=== PATIENT | female | born 1970 | race Caucasian/White ===

== ENCOUNTER 2017-05-07 18:51 | Emergency (ER) | payer BC ==
[~2017-05-07] VITALS: Ht 167.6 cm; Wt 68.0 kg
[~2017-05-07 18:51] MED LIST: ACCUPRIL; ACETAMINOPHEN325 M1; ACETAMINOPHEN325 M1 PO; ALPRAZOLAM ER1 MG PO; ALPRAZOLAM PO; ALPRAZOLAM1 M1; ALPRAZOLAM1 M1 PO; ASPIRIN EC81 M1; BACTRIM; BACTRIM DS TAB1 EACH PO; BACTROBAN NASAL1 GM NS; BENADRYL25 MG PO; CARVEDILOL6.25 MG; CLONAZEPAM 1 MG1 M1 PO; CLONAZEPAM PO; COLACE100 MG; DOXYCYCLINE; DOXYCYCLINE 10100 MG PO; IBUPROFEN 600600 M1; NITROGLYCERIN0.4 MG SL; PANTOPRAZOLE SO40 M1; PEPCID AC20 M1 PO; PERCOCET 5-3251 EACH; PREDNISONE 20 M20 M1 PO; PRILOSEC 20 MG20 MG PO; PRINIVIL20 MG PO; QUINU10 PD PO; QUINU5 PD PO; TESSALON200 MG PO; TRAMADOL 50 MG50 MG PO; VENTOLIN HFA INH8 GM IH
[2017-05-07 20:40] VITALS: BP 129/72
== END 2017-05-07 20:40 | disposition home or self-care (01) ==
LOC: M.ERS 18:51
DX: S93.491A Sprain of other ligament of right ankle, initial encounter (principal); S46.911A Strain of unspecified muscle, fascia and tendon at shoulder and upper arm level, right arm, initial encounter; I10 Essential (primary) hypertension; Z88.5 Allergy status to narcotic agent; X50.1XXA Overexertion from prolonged static or awkward postures, initial encounter; Y93.89 Activity, other specified; Y92.89 Other specified places as the place of occurrence of the external cause; Y99.8 Other external cause status

== ENCOUNTER 2019-05-19 03:03 | Inpatient (IN) | payer BC ==
[2019-05-19] VITALS (7 sets, daily range): BP systolic 95–113; BP diastolic 55–72
[~2019-05-19] VITALS: Ht 167.6 cm; Wt 75.2 kg
--- NOTE | ~2019-05-19 | OP ---
[facility] [address] [place] [address] OPERATIVE REPORT Name: HEATH BURGER Room: [address] IN M.R.#: [id number] Admission: 05/19/19 Attend Phys: Keisha Bermeo Discharge: Date of : 68 Report #: [id number] THIS REPORT FOR: //name// cc: Vinay Bella Russell J. DO ~ THIS REPORT FOR: //name// CC: Vinay Zarate DICTATED BY: August York DO DATE OF SERVICE: 05/19/2019 PREOPERATIVE DIAGNOSIS: Right acute closed trimalleolar ankle fracture. POSTOPERATIVE DIAGNOSIS: Right acute closed trimalleolar ankle fracture. PROCEDURES: 1. Open reduction and internal fixation right ankle with distal fibular plate and 2 partially-threaded cannulated medial malleolar screws. 2. Physician-directed fluoroscopy less than 1 hour. IMPLANTS: [employer] ankle solutions implants. SURGEON: Javed Beasley DO ASSISTANTS: August York DO; Alejandro Luo DO; Nathan Cox DO ANESTHESIA: General and regional block. ESTIMATED BLOOD LOSS: 25 mL. DRAINS: None. SPECIMENS: None. COMPLICATIONS: None. CONDITION: Stable to PACU. DISPOSITION: PACU to Med/Surg. ANTIBIOTICS: 2 g Ancef IV preop. TOURNIQUET: Approximately 50 minutes at 250 mmHg. [place] [address] [place] [address] OPERATIVE REPORT Name: HEATH BURGER Room: [place] [address] ADM IN M.R.#: [id number] Admission: 05/19/19 Attend Phys: Keisha Bermeo Discharge: Date of : 68 Report #: [id number] INDICATIONS FOR PROCEDURE: The patient is a very pleasant 49-year-old female who sustained a ground-level fall late last night. She had immediate right ankle pain and was brought to [facility] ED. X-rays identified a displaced trimalleolar ankle fracture dislocation. We recommended closed reduction versus open reduction and internal fixation in the operating room depending on the status of her soft tissue swelling. The risks, benefits, alternatives, and possible complications were discussed at length and she was agreeable to proceed. We also did discuss smoking and associated complications with that and recommended cessation. FINDINGS: Upon evaluation in the operating room after the splint was taken down, she had mild swelling, but the skin was able to tent. The decision was made to proceed with open reduction and internal fixation. DESCRIPTION OF PROCEDURE: The patient was met in the preoperative area. Consent was obtained. The correct site was marked. She was transferred to the operative suite and placed supine on the operative table. All bony prominences were well padded. She was secured to the table. She was given the benefit of general anesthesia. She was also given a regional block by Anesthesia in the preoperative area. A well-padded nonsterile tourniquet was applied to the right upper extremity. The right lower extremity was then prepped and draped in the normal sterile fashion. A timeout was performed to identify the correct patient, procedure, operative site, and administration of antibiotics. All in the room were in agreement. The procedure started with attention directed towards the lateral malleolus. A longitudinal incision was made laterally and carried down to the level of bone using both sharp and blunt dissection, taking care to avoid any neurovascular structures. The periosteum was cleared from the fracture site. Hematoma was removed with irrigation. A reduction maneuver was performed utilizing reduction clamps. Appropriate reduction was verified on fluoroscopy. We then utilized a 3.5 screw and lagged to the fracture by technique. Appropriate screw placement and reduction was again confirmed on fluoroscopy. We then proceeded to apply the lateral distal fibula plate. The plate was secured to bone both proximally and distally with nonlocking screws. We then placed locking screws into the distal holes. Three total screws were placed proximally. The fracture and hardware placement was then verified on fluoroscopy. We then turned our attention to the medial malleolus. A 3 cm incision was made over the medial malleolus longitudinally. Sharp and blunt dissection was carried down to the level of bone. Neurovascular structures were protected. A dental pick was used to reduce the fracture. We then temporarily held the fracture with 2 threaded K-wires. Appropriate reduction was verified on fluoroscopy. The near cortex was then drilled with a cannulated drill. This was followed by 2 partially-threaded cannulated screws. The K-wires were then removed. Final images were taken. The incisions were then thoroughly irrigated. The deep layers laterally were closed with 0 Vicryl. Subcutaneous tissue was reapproximated using 2-0 Vicryl suture in simple interrupted inverted [address] [address] OPERATIVE REPORT Name: TAOHEATHElieser CASTRO Room: [address] IN M.R.#: [id number] Admission: 05/19/19 Attend Phys: Keisha Bermeo Discharge: Date of : 68 Report #: [id number] fashion. This was followed by running nylon stitch for both the medial and lateral incisions. Sterile dressings were then applied including Xeroform and 4 x 4s. A well-padded splint was also applied. The tourniquet was let down. She tolerated the procedure well without any obvious complications. She was transferred to the PACU in stable condition. Dr. Beasley was present and scrubbed throughout all critical aspects of the case. By: 1327 [id number] Beasley DO /nt
[~2019-05-19 03:03] MED LIST changes: -ACETAMINOPHEN325 M1; -ALPRAZOLAM1 M1; -CARVEDILOL6.25 MG; +COREG6.25 MG PO; -PRILOSEC 20 MG20 MG PO; +PRILOSEC OTC20 MG PO
[2019-05-19] MEDS ORDERED: ZANTAC 150MG T150 M1 PO (03:25)
[2019-05-19 07:38] LABS: ABSOLUTE BASOPHILS 0.1 thou/uL (0.0-0.2); ABSOLUTE LYMPHOCYTES 1.9 thou/uL (0.8-5.3); ABSOLUTE MONOCYTES 0.8 thou/uL (0.0-1.2); ABSOLUTE NEUTROPHILS 10.5 thou/uL (1.6-8.1); BASOPHILS 0.5 %; EOSINOPHILS 0.3 %; HEMATOCRIT 38.9 % (37.0-47.0); HEMOGLOBIN 12.8 gm/dL (12.0-15.0); MCHC 33.1 g/dL (28.0-37.0); MCV 90.7 fL (80.0-100.0); MONOCYTES 6.4 %; NUCLEATED RBCS 0 /100WBC; PLATELET COUNT* 337 thou/uL (150-400); POLYS 78.8 %; RBC 4.28 mil/uL (4.20-5.00); RDW-CV 14.5 % (10.5-14.5); WBC 13.3 thou/uL (4.0-11.0)
[2019-05-19 07:45] LABS: PROTIME 10.7 Seconds (9.20-11.50)
[2019-05-19 07:58] LABS: ALBUMIN 3.6 g/dL (3.4-5.0); ALKALINE PHOSPHATASE 49 U/L (46-116); ANION GAP 15 mmol/L (7-16); BUN 8 mg/dL (7-18); CALCIUM 7.7 mg/dL (8.5-10.1); CHLORIDE 107 mmol/L (98-107); CO2 23 mmol/L (21-32); CREATININE 0.7 mg/dL (0.6-1.3); GLUCOSE 87 mg/dL (70-99); NT-PRO BRAIN NAT PEPTIDE 95 pg/mL (<300); POTASSIUM 3.4 mmol/L (3.5-5.1); SGOT 17 U/L (15-37); SGPT 21 U/L (30-65); SODIUM 145 mmol/L (136-145); TOTAL BILIRUBIN 0.2 mg/dL (<0.1-1.0); TOTAL PROTEIN 6.8 g/dL (6.4-8.2); TROPONIN-I LEVEL <0.06 ng/mL (<0.06)
[2019-05-19 10:38] LABS: AMP/METHAMP Negative (Negative); BARBITURATES Negative (Negative); BENZODIAZEPINES POSITIVE (Negative); COCAINE Negative (Negative); METHADONE Negative (Negative); OPIATES POSITIVE (Negative); PCP Negative (Negative); THC Negative (Negative)
--- NOTE | 2019-05-19 12:35 | CON ---
[address] [address] CONSULTATION Name: HEATH BURGER Room: [place] [address] ADM IN M.R.#: [id number] Admission: 05/19/19 Attend Phys: Keisha Bermeo Discharge: Date of : 68 Report #: [id number] THIS REPORT FOR: //name// cc: Vinay Bella Russell J. DO THIS REPORT FOR: //name// CC: Vinay De Leon DATE OF SERVICE: 05/19/2019 CARDIOLOGY CONSULTATION HISTORY OF PRESENT ILLNESS: The patient is a 49-year-old single white female who I was asked to see in the hospital today because of her cardiomyopathy. Unfortunately, not a lot of old records available. The patient states that she was first diagnosed with a cardiomyopathy when she was 38 years old. She apparently had a fever and was admitted to [facility]. She was found to have ejection fraction of 35%. She was discharged and saw Dr. Mchugh years ago here at [facility]. She was felt to have a nonischemic cardiomyopathy. Reason was unclear. It was suggested it was possibly due to a virus or excessive alcohol intake. She requests a second opinion, has actually been followed at for the past several years. She has never had a heart catheterization. She apparently had a nuclear stress test and echocardiogram 6 months ago that showed ejection fraction is now 60%. Recently, her blood pressure is low and she saw [facility]iology [facility] last week and her dose of lisinopril was decreased. She only gets short of breath if she overexerts herself. She has had no significant edema, orthopnea. She denied any palpitations or recent syncope. She notes she was dancing last night and her dance partner lost balance. She apparently fell and fractured her ankle. She was brought here to [facility] and found to have a broken ankle. She is scheduled for surgery today. I was asked to see her for preop evaluation. She denies any chest pain. PAST MEDICAL HISTORY: Otherwise, she is G4, P4. She had a previous hysterectomy, bladder surgery. She has a history of hypertension. No history of diabetes. She does have history of hyperlipidemia. CURRENT MEDICATIONS: Coreg, lisinopril, recently started on a statin drug. FAMILY HISTORY: Negative for heart disease. SOCIAL HISTORY: She is single, lives with boyfriend in [place], smokes less than half pack of cigarettes a day. Rarely drinks alcohol [place] [address] CONSULTATION Name: HEATH BURGER Room: [address] IN [facility].#: [id number] Admission: 05/19/19 Attend Phys: Keisha Bermeo Discharge: Date of : 68 Report #: [id number] works for the [employer]. REVIEW OF SYSTEMS: She has a history of Delcid's palsy. No stroke, no asthma. No liver disease, no kidney disease. 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 She sees a psychiatrist for anxiety. PHYSICAL EXAMINATION: GENERAL: Revealed a middle-aged female lying in bed. She appeared in mild distress secondary to ankle pain. VITAL SIGNS: Her blood pressure is only 100 systolic, pulse is 90. She is afebrile. HEENT: She was anicteric. Conjunctivae pink. Mucous membranes moist. NECK: Veins do not appear distended. CHEST: Clear to auscultation. CARDIOVASCULAR: Regular rate and rhythm without murmur. ABDOMEN: Soft. EXTREMITIES: Had no edema. SKIN: Warm and dry. NEUROLOGIC: Nonfocal. RADIOLOGICAL DATA: Her ECG showed a sinus rhythm, small inferior Q-waves, early transition. Her workup in the Emergency Room last night: Sodium 145, potassium 3.4, creatinine 0.7. Liver function studies appear normal. BNP 95. Alcohol less than 10. White blood cell count 13.3, hemoglobin 12.8. She had a recent chest x-ray. IMPRESSION AND RECOMMENDATIONS: 1. History of cardiomyopathy. The patient has been on a beta steven and TONEY inhibitor. Apparently, her last echocardiogram showed ejection fraction was normalized. Because of low blood pressure, I would hold her TONEY inhibitor at this time. 2. Tobacco abuse. 3. History of excessive alcohol intake. 4. Anxiety disorder. 5. Ankle fracture. The patient appears to have no cardiac contraindication to ankle surgery. I believe her risk or cardiac complications of surgery low at this time. <ELECTRONICALLY SIGNED> By: Javed Jacobs MD, [facility] 05/19/19 1235 [id number] Jacobs MD, [facility] /nt
--- NOTE | 2019-05-19 14:32 | NUR ---
PT RETURNED FROM OR AT THIS TIME. PAIN MANAGED. VSS. TOLERATING ICE WATER. NO OTHER CONCERNS AT THIS TIME. CLWR. WCTM.
--- NOTE | 2019-05-19 15:59 | NUR ---
PT PROGRESSING TOWARDS GOALS THIS SHIFT. REFER TO ASSESSMENT. PT HAD SURGERY TO RLE ANKLE. CLEARED BY CARDIOLOGY PRIOR TO SURGERY. POST OP, PT HAS NO C/O PAIN AT THIS TIME. C/O REFLUX AND ANXIETY. PHYSICIAN NOTIFIED AND NEW ORDERS RECEIVED. PT IS NWB TO RLE. USING WALKER AND SBA TO BR. PHYSICAL THERAPY CONSULTED FOR EVAL AND TREAT. NO OTHER CONCERNS AT THIS TIME. CLWR. WCTM.
[2019-05-20] VITALS: BP 90/55
[2019-05-20 04:00] VITALS: BP 101/67
[2019-05-20 04:50] LABS: HEMATOCRIT 35.2 % (37.0-47.0); HEMOGLOBIN 11.6 gm/dL (12.0-15.0); MCH 30.3 pg (26.0-34.0); MCHC 33.1 g/dL (28.0-37.0); MCV 91.8 fL (80.0-100.0); MPV 8.5 fl. (7.2-11.1); NUCLEATED RBCS 0 /100WBC; PLATELET COUNT* 283 thou/uL (150-400); RBC 3.83 mil/uL (4.20-5.00); RDW-CV 14.6 % (10.5-14.5); WBC 18.9 thou/uL (4.0-11.0)
[2019-05-20 05:04] LABS: CALCIUM 7.6 mg/dL (8.5-10.1); POTASSIUM 3.7 mmol/L (3.5-5.1)
[2019-05-20 05:28] LABS: ABSOLUTE LYMPHOCYTES 0.6 thou/uL (0.8-5.3); ABSOLUTE MONOCYTES 0.6 thou/uL (0.0-1.2); ABSOLUTE NEUTROPHILS 17.8 thou/uL (1.6-8.1); PLATELET ESTIMATE ADEQUATE
[2019-05-20 05:29] LABS: TOXIC GRANULATION 1+
[2019-05-20 08:00] VITALS: BP 108/65
[2019-05-20 10:56] VITALS: BP 108/65
[2019-05-20] MEDS ORDERED: PERCOCET PO (11:17)
[2019-05-20] MEDS ORDERED: ASPIRIN325 PO (11:17)
[2019-05-20] MEDS ORDERED: ASPIRIN EC81 M1 PO (11:17)
[2019-05-20 12:05] VITALS: BP 117/71
[2019-05-20] MEDS ORDERED: PERCOCET 5-3251 EACH PO (13:48)
--- NOTE | 2019-05-20 14:23 | NUR ---
MET WITH PT THIS AM TO DISCUSS HOME SITUATION/DC PLANNING. PT LIVES WITH DTR/SON AND GRANDKIDS. PT IS USUALLY INDEPENDENT AND ACTIVE, USES NO EQUIPMENT. PT WOULD LIKE A ROLLATER, IS ALONE PART OF THE DAY AND WORRIED ABOUT HOW SHE WILL MANAGE, IS NWB ALSO. TALKED WITH PT ABOUT HH, IS AGREEABLE TO THAT ALSO, DIDN'T HAVE PREFERENCE. WANTED ONE IN HER NETWORK. CALLS MADE AND ABLE TO FIND ROLLATOR AT [facility], THEY WILL DELIVER TO ROOM. ORDERS FAXED TO THEM. [facility] CAME OUT TO SEE PT AND SHE IS AGREEABLE TO THEIR SERVICES. TO GO HOME THIS AFTERNOON. [place] PAPERS COMPLETED AND EMAILED BACK TO PT'S EMPLOYER. COPY GIVEN TO PT ALSO AND ON CHART
--- NOTE | 2019-05-20 17:25 | NUR ---
ASSUMED PT CARE AT 0730. ASSESSMENT COMPLETED CHARTED. ABLE TO MAKE NEEDS KNOWN. C/O PAIN IN RIGHT LEG AND GAVE PRN PAIN MEDICATION PER EMAR. DISCHARGE APPROVED, CAST ON RIGHT FOOT NOTIFIED ORTHO ABOUT BOOT AND FIXED PEXIGLASS. RESTING IN BED MOST OF THE DAY. UP WITH SBA TO GET TO THE BATHROOM BY HOPPING ON ONE FOOT. SCRIPTS GIVEN TO PT WITH DRUG INFO. IV AND HEART MONITOR REMOVED. GATHERED ALL BELONGINGS AND TOOK OUT TO SON'S CAR. RECIEVED WALKER AND TAKEN DOWN WITH PT IN WHEELCHAIR BY VOLUNTEERS AT 1645. NO COMMENTS, QUESTIONS, OR CONCERNS.
--- NOTE | 2019-05-22 13:44 | EKG ---
[place] [address] ELECTROCARDIOGRAM REPORT Name: HEATH BURGER Room: [place] [address] DIS IN M.R.#: [id number] Admission: 05/19/19 Attend Phys: Luke Zarate Discharge: 05/20/19 Date of : 68 Date of Service: 05/19/19 0834 Report #: [id number] THIS REPORT FOR: cc: Vinay Bella,Vinay Bojorquez,Javed Aden MD [facility] ~ THIS REPORT FOR: //name// [facility] Test Date: 2019-05-19 Test Time: 08:34:30 Pat Name: HEATH BURGER Department: Room: [facility] Gender: F Wind Up Operator: YASH : 1970 Requested By: Linette Marquez Order Number: [id number] MD: Javed Jacobs Measurements Intervals Magnet Rate: 83 P: 44 WV: 152 QRS: 72 QRSD: 93 T: 38 QT: 377 QTc: 443 Interpretive Statements Sinus rhythm Abnormal R-wave progression, early transition No previous ECG available for comparison Electronically Signed On 05-19-2019 11:03:19 [employer] by Javed Jacobs [email or web address] <ELECTRONICALLY SIGNED> By: Javed Jacobs MD, [facility] 05/19/19 1103 3 3 Javed Jacobs MD, [facility] /EPI
== END 2019-05-20 16:52 | disposition home health service (06) | DRG 493 ==
LOC: M.ERS 03:03 → M.TBA-ER 05:06 → M.2W 05:06
PROVIDERS: Emergency Medicine; Internal Medicine; ADMIT Internal Medicine
PROC: 2W3SX1Z Immobilization of Right Foot using Splint (ICD-10-PCS; principal; 2019-05-19)
PROC: 0QSJ04Z Reposition Right Fibula with Internal Fixation Device, Open Approach (ICD-10-PCS; principal; 2019-05-19)
PROC: 0QSG04Z Reposition Right Tibia with Internal Fixation Device, Open Approach (ICD-10-PCS; principal; 2019-05-19)
DX: S82.851A Displaced trimalleolar fracture of right lower leg, initial encounter for closed fracture (principal); I42.9 Cardiomyopathy, unspecified; I10 Essential (primary) hypertension; X58.XXXA Exposure to other specified factors, initial encounter; F41.9 Anxiety disorder, unspecified; K21.9 Gastro-esophageal reflux disease without esophagitis; F10.129 Alcohol abuse with intoxication, unspecified; Y90.9 Presence of alcohol in blood, level not specified; Z79.899 Other long term (current) drug therapy; Z79.82 Long term (current) use of aspirin; Z88.6 Allergy status to analgesic agent; Z88.8 Allergy status to other drugs, medicaments and biological substances; Y93.41 Activity, dancing; Y92.89 Other specified places as the place of occurrence of the external cause; Y99.8 Other external cause status; Z79.51 Long term (current) use of inhaled steroids; Z90.710 Acquired absence of both cervix and uterus